=== PATIENT | female | born 1975 | race Caucasian/White ===

== ENCOUNTER 2018-11-29 11:05 | Observation (INO) | payer BC ==
--- NOTE | 2018-11-29 12:49 | RAD REPORT ---
EXAM DESCRIPTION: US - Transvaginal Study Probe - 11/29/2018 12:33 pm CLINICAL HISTORY: Vaginal bleeding, right-sided pelvic pain, known fibroids COMPARISON: CT imaging April 2013 TECHNIQUE: Endovaginal and limited transabdominal sonography performed. FINDINGS: Right ovary cannot be identified. Right ovary and right adnexa are obscured by an enlarged multi fibroid uterus and prominent bowel. Enlarged bulky lobulated uterus is present 9.6 x 12.3 x 10.3 cm. Multiple fibroids are identified. Ca lcifications of the uterus are seen as well. Body habitus somewhat limits assessment. Largest fibroid is approximately 7.9 cm in size. This generally matches the 2014 study. The multiple fibroids and ut erine calcifications obscure the endometrium. No assessment of the endometrial cavity can be made. A normal left ovary is not confirmed on this study. There is a 3.4 centimeter rounded hypoechoic mass present in the left adnexa. Echogenicity is not typical for ovarian tissue. Doppler evaluation does show blood flow within this mass. IMPRESSION: The patient has an enlarged bulky multi fibroid uterus not substantially different from a 2014 CT study. Body habitus and the large multi fibroid uterus fully obscures the endometrial cavity. No assessment can be made for endometrial thickening, mass or polyp. A 3.4 centimeter hypoechoic left adnexal mass is present not believed to be normal ovarian tissue. A solid mass of the left ovary is suspected. Right ovary and right adnexa obscured by the enlarged uterus and prominent right adnexal bowel.
[2018-11-29 13:00] LABS: Absolute Lymphocytes (CBC) 2.3 K/uL (0.7-4.9); Hematocrit 15.5 % (36.0-45.0); Lymphocytes % 37.3 % (15.3-44.8); MPV 9.5 fL (7.6-11.3); RBC Red Blood Cell Count 2.75 M/uL (3.86-4.86)
[2018-11-29 13:16] LABS: BUN Blood Urea Nitrogen 11 mg/dL (7-18); Bicarbonate 22 mmol/L (21-32); Glucose Level 92 mg/dL (74-106); Potassium 3.6 mmol/L (3.5-5.1); Sodium Level 140 mmol/L (136-145)
[2018-11-29] MEDS ORDERED: NA CHLORIDE 0.9% 500 ML ONE (13:56)
--- NOTE | 2018-11-29 14:53 | ER ---
Nurse's Notes [facility] Name: Lashanda Green Age: 43 yrs Sex: Female : 1975 Arrival Date: 11/29/2018 Time: 11:07 Bed 20 Private MD: Diagnosis: Abnormal uterine and vaginal bleeding, unspecified;Anemia, unspecified;Leiomyoma of uterus, unspecified Presentation: 11/29 11:10 Presenting complaint: Patient states: "I had blood work done yesterday at my doctor's aa5 office in [place] and they called today and said I needed a blood transfusion that my hemoglobin was a 6". Pt states "I've had my period for over a month but the doctor gave me some medicine and it has slowed down significantly". Pt c/o SOB and generalized weakness. 11:10 Transition of care: patient was not received from another setting of care. Onset of aa5 symptoms was November 29, 2018. Risk Assessment: Do you want to hurt yourself or someone else? Patient reports no desire to harm self or others. Care prior to arrival: None. 11:10 Acuity: JULISA 2 aa5 11:10 Method Of Arrival: Ambulatory aa5 11:39 Initial Sepsis Screen: Does the patient meet any 2 criteria? No. Patient's initial ph sepsis screen is negative. Does the patient have a suspected source of infection? No. Patient's initial sepsis screen is negative. Historical: - Allergies: 11:21 PENICILLINS; aa5 - PMHx: 11:21 None; aa5 - PSHx: 11:21 None; aa5 - Social history:: Smoking status: Patient/guardian denies using tobacco. - Ebola Screening: : No symptoms or risks identified at this time. Screenin:39 Abuse screen: Denies threats or abuse. Denies injuries from another. Nutritional ph screening: No deficits noted. Tuberculosis screening: No symptoms or risk factors identified. Fall Risk None identified. Assessment: 11:38 General: Appears in no apparent distress. uncomfortable, Behavior is cooperative, ph appropriate for age, anxious, crying, Denies fever. Pain: Denies pain. Neuro: Level of Consciousness is awake, alert, obeys commands, Oriented to person, place, time, situation. Cardiovascular: Reports fatigue, lightheadedness, Denies chest pain, nausea, shortness of breath, vomiting, Capillary refill < 3 seconds fingers. Respiratory: Airway is patent Respiratory effort is even, unlabored, Respiratory pattern is regular, symmetrical. : Reports vaginal bleeding that is with clots, heavy flow moderate flow, since Beginning of October. Derm: Skin is intact, Skin is pale. Musculoskeletal: Circulation, motion, and sensation intact. Range of motion: intact in all extremities. 12:15 Reassessment: Pt in US, will start IV upon return to ED. ph 13:00 Reassessment: Patient appears in no apparent distress at this time. Patient and/or ph family updated on plan of care and expected duration. Pain level reassessed. Patient is alert, oriented x 3, equal unlabored respirations, skin warm/dry/pink. 14:00 Reassessment: Patient appears in no apparent distress at this time. Patient and/or ph family updated on plan of care and expected duration. Pain level reassessed. Patient is alert, oriented x 3, equal unlabored respirations, skin warm/dry/pink. 15:00 Reassessment: Patient appears in no apparent distress at this time. Patient and/or ph family updated on plan of care and expected duration. Pain level reassessed. Patient is alert, oriented x 3, equal unlabored respirations, skin warm/dry/pink. 16:11 Reassessment: Patient appears in no apparent distress at this time. Patient and/or ph family updated on plan of care and expected duration. Pain level reassessed. Patient is alert, oriented x 3, equal unlabored respirations, skin warm/dry/pink. Pt eating chips, tolerating well, waiting to be taken to inpatient room, attempted to call report. 16:26 Reassessment: Patient appears in no apparent distress at this time. Report called to flaquito Dunn RN. 16:55 Reassessment: Patient appears in no apparent distress at this time. Patient and/or ph family updated on plan of care and expected duration. Pain level reassessed. Patient is alert, oriented x 3, equal unlabored respirations, skin warm/dry/pink. Dr Arias at bedside to speak w/ pt. 17:00 Reassessment: Patient appears in no apparent distress at this time. Patient and/or ph family updated on plan of care and expected duration. Pain level reassessed. Patient is alert, oriented x 3, equal unlabored respirations, skin warm/dry/pink. Blood transfusion complete, pt taken to room by sales technician. Vital Signs: 11:10 BP 138 / 81; Pulse 103; Resp 18 S; Temp 99.9(O); Pulse Ox 100% on R/A; Weight 113.4 kg aa5 (R); Height 5 ft. 5 in. (165.10 cm) (R); Pain 0/10; 12:30 BP 115 / 90; Pulse 96; Resp 16; Pulse Ox 100% on R/A; ph 13:30 BP 116 / 68; Pulse 94; Resp 18; Pulse Ox 100% on R/A; ph 14:49 BP 109 / 58 LA Supine; Pulse 97; Resp 25; Pulse Ox 97% on R/A; dh3 14:51 BP 119 / 64 LA Sitting; Pulse 98; Resp 19; Pulse Ox 100% on R/A; dh3 14:53 BP 117 / 73 LA Standing; Pulse 113; Resp 23; Pulse Ox 100% on R/A; dh3 15:30 BP 118 / 55; Pulse 95; Resp 20; Pulse Ox 100% on R/A; ph 16:27 BP 103 / 44; Pulse 91; Resp 16; Temp 98.0; Pulse Ox 100% on R/A; ph 11:10 Body Mass Index 41.60 (113.40 kg, 165.10 cm) aa5 ED Course: 11:07 Patient arrived in ED. as 11:10 Simi Denny FNP-C [facility]. kb 11:10 Jordy Moore MD is Attending Physician. kb 11:10 Arm band placed on Patient placed in an exam room, on a stretcher. aa5 11:20 Triage completed. aa5 11:38 Yessica Koo, RICKY is Primary Nurse. ph 11:40 Patient has correct armband on for positive identification. Call light in reach. Side ph rails up X2. security monitor on. Pulse ox on. NIBP on. Door closed. Noise minimized. Warm blanket given. Head of bed elevated. 12:38 US Transvaginal Study (Probe) In Process Unspecified. EDMS 12:45 Inserted saline lock: 22 gauge in left antecubital area, using aseptic technique. Blood ph collected. 13:05 Notified Nurse Practitioner and/or Physician Coil Binder of a critical lab result(s), aa5 Hemoglobin 4.4 and Hematocrit 15.5. 14:51 Harlan Smart MD is Hospitalizing Provider. kb 17:20 No provider procedures requiring assistance completed. ph 17:21 Patient admitted, IV remains in place. ph Administered Medications: 15:30 Drug: Ketorolac 15 mg Route: IVP; Site: left antecubital; ph 17:23 Follow up: Response: No adverse reaction; Pain is decreased ph 16:11 Drug: DepoProvera - medroxyPROGESTERone 150 mg Route: IM; Site: left deltoid; ph 17:24 Follow up: Response: No adverse reaction ph Medication: 15:35 Blood products: PRBCs X 1 unit given. ph Outcome: 14:52 Decision to Hospitalize by Provider. kb 17:21 Admitted to Tele accompanied by tech, via wheelchair, room 205, with chart, Report ph called to Mona GARCÍA 17:21 Condition: stable 17:21 Instructed on the need for admit. 17:24 Patient left the ED. ph Signatures: Dispatcher [employer] Simi Ambriz, LISA MCKEE-Lisbeth Meadows Audri, RN RN aa5 Yessica Koo RN RN [facility]
--- NOTE | 2018-11-29 14:54 | EDPHYS ---
Physician Documentation [facility] Name: Lashanda Green Age: 43 yrs Sex: Female : 1975 Arrival Date: 11/29/2018 Time: 11:07 Bed 20 Private MD: ED Physician Jordy Moore HPI: 11/29 11:16 This 43 yrs old Female presents to ER via Unassigned with complaints of kb Abnormal Lab Results. 11:16 The patient presents with vaginal bleeding that is heavy. Onset: The symptoms/episode kb began/occurred 1 month(s) ago. Modifying factors: The symptoms are alleviated by prescription medications, progesterone , the symptoms are aggravated by nothing. Associated signs and symptoms: Pertinent positives: cramping, vaginal bleeding, Pertinent negatives: constipation, diarrhea, dyspareunia, dysuria, fever, hematuria, nausea, urinary frequency, vaginal discharge, vomiting. Severity of symptoms: At their worst the symptoms were severe, in the emergency department the symptoms have improved, moderately. The patient has experienced similar episodes in the past. The patient has been recently seen by a physician: yesterday, with similar presenting complaints. Pt reports she has always had heavy menstrual cycles, but they have been getting worse lately. This time she has been bleeding for a month. Went to [facility] yesterday and was started on progesterone and had labs drawn. Called today and told her HGB was 6 so she needed to come get a transfusion. Pt reports fatigue and weakness as well. . Historical: - Allergies: 11:21 PENICILLINS; aa5 - PMHx: 11:21 None; aa5 - PSHx: 11:21 None; aa5 - Social history:: Smoking status: Patient/guardian denies using tobacco. - Ebola Screening: : No symptoms or risks identified at this time. ROS: 11:22 Positive for vaginal bleeding. kb 11:22 ENT: Negative for injury, pain, and discharge, Neck: Negative for injury, pain, and swelling, Cardiovascular: Negative for chest pain, palpitations, and edema, Respiratory: Negative for shortness of breath, cough, wheezing, and pleuritic chest pain, Abdomen/GI: Negative for abdominal pain, nausea, vomiting, diarrhea, and constipation, Back: Negative for injury and pain, MS/Extremity: Negative for injury and deformity, Skin: Negative for injury, rash, and discoloration, Neuro: Negative for headache, weakness, numbness, tingling, and seizure. 11:22 Constitutional: Positive for fatigue. Exam: 11:24 Constitutional: This is a well developed, well nourished patient who is awake, alert, kb and in no acute distress. Head/Face: Normocephalic, atraumatic. ENT: Nares patent. No nasal discharge, no septal abnormalities noted. Tympanic membranes are normal and external auditory canals are clear. Oropharynx with no redness, swelling, or masses, exudates, or evidence of obstruction, uvula midline. Mucous membranes moist. Neck: Trachea midline, no thyromegaly or masses palpated, and no cervical lymphadenopathy. Supple, full range of motion without nuchal rigidity, or vertebral point tenderness. No Meningismus. Chest/axilla: Normal chest wall appearance and motion. Nontender with no deformity. No lesions are appreciated. Cardiovascular: Regular rate and rhythm with a normal S1 and S2. No gallops, murmurs, or rubs. Normal PMI, no JVD. No pulse deficits. Respiratory: Lungs have equal breath sounds bilaterally, clear to auscultation and percussion. No rales, rhonchi or wheezes noted. No increased work of breathing, no retractions or nasal flaring. Abdomen/GI: Soft, non-tender, with normal bowel sounds. No distension or tympany. No guarding or rebound. No evidence of tenderness throughout. Skin: Warm, dry with normal turgor. Normal color with no rashes, no lesions, and no evidence of cellulitis. MS/ Extremity: Pulses equal, no cyanosis. Neurovascular intact. Full, normal range of motion. Neuro: Awake and alert, GCS 15, oriented to person, place, time, and situation. Cranial nerves II-XII grossly intact. Motor strength 5/5 in all extremities. Sensory grossly intact. Cerebellar exam normal. Normal gait. 11:24 Constitutional: The patient appears pale. 14:27 : Pelvic Exam: External exam: is normal, Speculum exam: moderate bleeding, blood kb clots in vaginal vault, bimanual exam reveals no cervical motion tenderness. Vital Signs: 11:10 BP 138 / 81; Pulse 103; Resp 18 S; Temp 99.9(O); Pulse Ox 100% on R/A; Weight 113.4 kg aa5 (R); Height 5 ft. 5 in. (165.10 cm) (R); Pain 0/10; 12:30 BP 115 / 90; Pulse 96; Resp 16; Pulse Ox 100% on R/A; ph 13:30 BP 116 / 68; Pulse 94; Resp 18; Pulse Ox 100% on R/A; ph 14:49 BP 109 / 58 LA Supine; Pulse 97; Resp 25; Pulse Ox 97% on R/A; dh3 14:51 BP 119 / 64 LA Sitting; Pulse 98; Resp 19; Pulse Ox 100% on R/A; dh3 14:53 BP 117 / 73 LA Standing; Pulse 113; Resp 23; Pulse Ox 100% on R/A; dh3 15:30 BP 118 / 55; Pulse 95; Resp 20; Pulse Ox 100% on R/A; ph 16:27 BP 103 / 44; Pulse 91; Resp 16; Temp 98.0; Pulse Ox 100% on R/A; ph 11:10 Body Mass Index 41.60 (113.40 kg, 165.10 cm) aa5 MDM: 11:11 Patient medically screened. kb 11:24 Data reviewed: vital signs, nurses notes. Data interpreted: Pulse oximetry: on room air kb is 100 %. Interpretation: normal. 14:28 Counseling: I had a detailed discussion with the patient and/or guardian regarding: the kb historical points, exam findings, and any diagnostic results supporting the discharge/admit diagnosis, lab results, radiology results, the need for further work-up and treatment in the hospital. 14:36 Physician consultation: Harlan Smart MD was called at 14:36, message left with kb staff. 14:44 Physician consultation: Harlan Smart MD was contacted at 14:44, regarding kb admission, to the medical/surgical unit. patient's condition, and will see patient in inpatient room. 11/29 11:16 Order name: CBC with Diff; Complete Time: 17:10 kb 11/29 11:16 Order name: Basic Metabolic Panel; Complete Time: 13:30 kb 11/29 11:16 Order name: Type And Screen kb 11/29 11:21 Order name: Iron Level; Complete Time: 13:30 kb 11/29 13:19 Order name: Bb Add On dh3 11/29 13:27 Order name: Packed RBC Leukored EDMS 11/29 11:16 Order name: IV Start; Complete Time: 13:47 kb 11/29 11:16 Order name: US Transvaginal Study (Probe); Complete Time: 13:05 kb 11/29 13:12 Order name: Pelvic Exam Setup; Complete Time: 13:47 kb 11/29 14:17 Order name: Urine Dipstick--Ancillary (enter results); Complete Time: 15:52 eb 11/29 14:29 Order name: ABO/RH no charge; Complete Time: 14:28 [facility] 11/29 17:09 Order name: CBC Smear Scan; Complete Time: 17:10 [facility] 11/29 14:38 Order name: Orthostatics; Complete Time: 14:57 kb Administered Medications: 15:30 Drug: Ketorolac 15 mg Route: IVP; Site: left antecubital; ph 17:23 Follow up: Response: No adverse reaction; Pain is decreased ph 16:11 Drug: DepoProvera - medroxyPROGESTERone 150 mg Route: IM; Site: left deltoid; ph 17:24 Follow up: Response: No adverse reaction ph Disposition: 11/29/18 14:52 Hospitalization ordered by Harlan Smart for Observation. Preliminary diagnosis are Abnormal uterine and vaginal bleeding, unspecified, Anemia, unspecified, Leiomyoma of uterus, unspecified. - Bed requested for Telemetry/MedSurg (observation). - Status is Observation. ph - Condition is Stable. - Problem is new. - Symptoms are unchanged. UTI on Admission? No Addendum: 12/04/2018 14:39 Co-signature as Attending Physician, Jordy Moore MD. g s Signatures: Dispatcher [employer] [facility] Simi Denny, HEAVY EQUIPMENT RENTAL MANAGER-C HEAVY EQUIPMENT RENTAL MANAGER-Ckb Siri Garcia RN RN dw Sharmaine Segovia, RN RN aa5 Yessica Koo RN RN ph Starr, Gregory, MD MD Corrections: (The following items were deleted from the chart) 11/29 15:04 14:52 Hospitalization Ordered by Harlan Smart MD for Observation. Preliminary dw diagnosis is Abnormal uterine and vaginal bleeding, unspecified; Anemia, unspecified; Leiomyoma of uterus, unspecified. Bed requested for Telemetry/MedSurg (observation). Status is Observation. Condition is Stable. Problem is new. Symptoms are unchanged. UTI on Admission? No. kb 15:09 15:04 11/29/2018 14:52 Hospitalization Ordered by Harlan Smart MD for Observation. dw Preliminary diagnosis is Abnormal uterine and vaginal bleeding, unspecified; Anemia, unspecified; Leiomyoma of uterus, unspecified. Bed requested for Telemetry/MedSurg (observation). Status is Observation. Condition is Stable. Problem is new. Symptoms are unchanged. UTI on Admission? No. dw 17:24 15:09 11/29/2018 14:52 Hospitalization Ordered by Harlan Smart MD for Observation. ph Preliminary diagnosis is Abnormal uterine and vaginal bleeding, unspecified; Anemia, unspecified; Leiomyoma of uterus, unspecified. Bed requested for Telemetry/MedSurg (observation). Status is Observation. Condition is Stable. Problem is new. Symptoms are unchanged. UTI on Admission? No. dw
[2018-11-29] MEDS ORDERED: KETOROLAC 30 MG/ML INJ ONE (15:21)
[2018-11-29 15:39] LABS: Urine Blood 3+ (NEG); Urine Glucose NEGATIVE (NEG); Urine Protein 2+ (NEG)
[2018-11-29] MEDS ORDERED: MEDROXYPROGEST ACET 150 MG/ML IM ONE (16:00)
[2018-11-29] MEDS ORDERED: METHOCARBAMOL 1,000 MG in NA CHLORIDE 0.9% 100 ML IV ONE (16:00)
[2018-11-29 17:08] LABS: Anisocytosis 3+; Blood Morphology Comment NOTED (NOT SEEN); Hypochromasia 3+; Platelet Estimate INCR; Poikilocytosis 2+; Urine White Blood Cell Casts OK
--- NOTE | 2018-11-29 17:10 | P.PN ---
Date of Service: 11/29/18 H&P dictated. 43y/o with multifibroid uterus with menometrorhagia. Will control with DepoProvera/OC's, transfuse 3 units prbc's and reevaluate in the morning her bleeding control.
[2018-11-29] MEDS ORDERED: NA CHLORIDE 0.9% 250 ML ONE (17:39)
[2018-11-29 17:49] VITALS: BMI 42.3
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
[2018-11-30] MEDS: Ringers Lactate 1,000 ML IV SCH ×2 (04:32→05:00)
[2018-11-30 04:44] LABS: Absolute Lymphocytes (CBC) 2.4 K/uL (0.7-4.9); Basophils % 1.6 % (0-1.3); Lymphocytes % 34.9 % (15.3-44.8); MPV 9.4 fL (7.6-11.3); RBC Red Blood Cell Count 3.14 M/uL (3.86-4.86)
[2018-11-30 04:48] LABS: Hematocrit 20.6 % (36.0-45.0)
[2018-11-30 04:54] LABS: BUN Blood Urea Nitrogen 12 mg/dL (7-18); Bicarbonate 22 mmol/L (21-32); Glucose Level 89 mg/dL (74-106); Potassium 3.8 mmol/L (3.5-5.1); Sodium Level 142 mmol/L (136-145)
[2018-11-30] MEDS ORDERED: NA CHLORIDE 0.9% 250 ML ONE (08:58)
[2018-11-30] MEDS ORDERED: NORGESTREL ETHINYL ESTRADIOL PO SCH (09:00)
[2018-11-30] MEDS: IBUPROFEN 400 MG TAB PO PRN ×2 (11:48→20:37)
[2018-11-30] MEDS ORDERED: NORGESTREL ETHINYL ESTRADIOL PO ONE (20:00)
[2018-11-30 21:41] VITALS: O2SAT 100
[2018-12-01] MEDS: Ringers Lactate 1,000 ML IV SCH (00:15)
[2018-12-01 04:18] VITALS: TEMP 98.2
[2018-12-01 07:29] LABS: Hematocrit 21.9 % (36.0-45.0)
[2018-12-01 08:59] VITALS: BP 127/73
[2018-12-01] MEDS ORDERED: NORGESTREL ETHINYL ESTRADIOL PO SCH (09:00)
--- NOTE | 2018-12-02 06:30 | DS ---
Date of Discharge: 12/01/2018 Final Hospital Discharge Diagnoses: 1.Severe blood loss anemia and secondary menometrorrhagia. 2.Multifibroid uterus. Complications: None. Procedures: None. Hospital Course: The patient is a 43-year-old female, nulligravid, admitted with s evere anemia secondary to menometrorrhagia. Her admission hemoglobin and hematocrit were 4.4 and 15. 5. She received 4 units of blood. Packed red blood cells were dismissed with hemoglobin and hematoc rit pending, but most recent was 6.8 and 23.0. She was dismissed, having received an injection of De po-Provera 150 mg and being started on Ovral contraceptive. She will be seen back in my office in 2 weeks for repeat CBC, endometrial biopsy, and probably will be referred to a mail sorting supervisor for hystere ctomy via minimally invasive approach. She is O-positive blood type. YANNA/BERTIN Voice ID: [id number] Report ID: [id number]
== END 2018-12-01 09:10 | disposition home or self-care (01) ==
LOC: ER 11:05 → ERHOLD 14:57 → 2ND 16:26
PROVIDERS: ADMIT Specialist; ATTEND Specialist
DX: D50.0 Iron deficiency anemia secondary to blood loss (chronic) (principal); N92.1 Excessive and frequent menstruation with irregular cycle; D25.9 Leiomyoma of uterus, unspecified
CPT/HCPCS: 85025 ×2; 80048 ×2; 36415 ×2; 86900; 86850; 86901; 85018 ×2; 85014 ×2; 81003; 82728; 76830; 36430; 96372; 96374; 99285; J1050; P9016 ×4; G0378 ×4; J2800

== ENCOUNTER 2019-01-29 08:55 | Inpatient (IN) | payer BC ==
[2019-01-25 12:04] LABS: Urine Appearance CLOUDY; Urine Blood 2+ (NEG); Urine Color YELLOW; Urine Glucose NEGATIVE (NEG); Urine Protein NEGATIVE (NEG); Urine Urobilinogen 0.2 mg/dL (0.2-1.0); Urine pH 5.5 (5.0-7.0)
[2019-01-25 12:08] LABS: Absolute Lymphocytes (CBC) 1.8 K/uL (0.7-4.9); Basophils % 1.1 % (0-1.3); Hematocrit 37.3 % (36.0-45.0); Lymphocytes % 24.7 % (15.3-44.8); MPV 10.5 fL (7.6-11.3); RBC Red Blood Cell Count 4.54 M/uL (3.86-4.86)
[2019-01-25 12:21] LABS: Urine Bilirubin NEGATIVE (NEG); Urine Microscopic Reflex ORDER UMIC
[2019-01-25 12:36] LABS: Urine Bacteria 20-50 /HPF (<20)
[2019-01-25 12:38] LABS: Urine Culture Reflex Order NOT NEEDED; Urine Mucus 1+ /HPF (NONE SEEN)
[2019-01-25 13:07] LABS: Blood Morphology Comment NOT SEEN (NOT SEEN); Platelet Estimate ADEQ
[2019-01-29] MEDS ORDERED: Ringers Lactate 1,000 ML IV ONE ×2 (09:18→14:21)
[2019-01-29] MEDS ORDERED: CEFAZOLIN/SWI 2gm 2 GM/20 ML SYR ONE (09:18)
[2019-01-29] MEDS ORDERED: CEFAZOLIN/SWI 1gm 1 GM/10 ML SYR ONE (09:19)
[2019-01-29] MEDS ORDERED: SCOPOLAMINE HYDROBROMIDE PATCH TD ONE ×2 (09:33)
[2019-01-29] MEDS ORDERED: MIDAZOLAM HCL 2 MG/2 ML INJ ONE ×2 (10:03→10:12)
[2019-01-29] MEDS ORDERED: PROPOFOL 200 MG/20 ML VIAL IV ONE (10:09)
[2019-01-29] MEDS ORDERED: ROCURONIUM 50 MG/5 ML VIAL IV ONE ×3 (10:10→12:35)
[2019-01-29] MEDS ORDERED: LIDOCAINE 2% MPF 5 ML VIAL ONE (10:10)
[2019-01-29] MEDS ORDERED: FENTANYL CITR 250 MCG/5 ML ONE (10:11)
[2019-01-29] MEDS ORDERED: ONDANSETRON 4 MG/2 ML VIAL ONE (10:13)
[2019-01-29] MEDS ORDERED: GLYCOPYRROLATE 0.2 MG/ML SYR ONE (10:13)
[2019-01-29] MEDS ORDERED: NEOSTIGMINE 1 MG/ML -5 ML ONE (10:13)
[2019-01-29] MEDS ORDERED: dexAMETHasone 10 MG/ML VIAL ONE (10:14)
[2019-01-29] MEDS: NA CHLORIDE 0.9% 1,000 ML ONE ×2 (11:10→12:05)
[2019-01-29] MEDS: BUPIVACA 0.5%/EPI 0.0005%/PF 30 ML VIAL ONE ×2 (11:20→12:10)
[2019-01-29] MEDS: Ringers Lactate 1,000 ML IV ONE ×2 (11:33→12:08)
[2019-01-29] MEDS ORDERED: NA CHLORIDE 0.9% 100 ML IV ONE (11:48)
[2019-01-29] MEDS ORDERED: VASOPRESSIN 20 UNIT/ML VIAL ONE (11:49)
[2019-01-29] MEDS ORDERED: HYDROMORPHONE HCL 2 MG/ML inj ONE ×2 (12:38→13:47)
[2019-01-29] MEDS ORDERED: NA CHLORIDE 0.9% 1,000 ML ONE (13:37)
[2019-01-29] MEDS ORDERED: CEFAZOLIN SODIUM 1 GM/VIAL ONE (13:49)
[2019-01-29] MEDS ORDERED: ACETAMINOPHEN 500 MG TAB PO PRN (14:39)
[2019-01-29] MEDS ORDERED: ONDANSETRON 4 MG (ODT) TAB PO PRN (14:39)
[2019-01-29] MEDS ORDERED: IBUPROFEN 600 MG TAB PO PRN (14:39)
[2019-01-29] MEDS ORDERED: PROMETHAZINE 25 MG/ML VIAL IV PRN (14:39)
[2019-01-29] MEDS ORDERED: NALOXONE 0.4 MG/ML VIAL IV PRN (14:42)
[2019-01-29] MEDS ORDERED: MORPHINE/NS PCA 50 MG/50 ML PCA.SYRING IV PRN (14:42)
[2019-01-29] MEDS ORDERED: HEPARIN 5000 UNIT/ML 1 ML VIAL SQ SCH (17:00)
[2019-01-29 17:11] VITALS: O2SAT 94; BMI 41.9
[2019-01-29] MEDS: Ringers Lactate 1,000 ML IV SCH (20:00)
[2019-01-30] MEDS: Ringers Lactate 1,000 ML IV SCH ×2 (04:11→12:08)
[2019-01-30] MEDS: HEPARIN 5000 UNIT/ML 1 ML VIAL SQ SCH ×2 (07:59→17:00)
[2019-01-30] MEDS ORDERED: DOCUSATE NA 100 MG CAP PO PRN (12:46)
[2019-01-30] MEDS: HYDROCODONE/APAP 5/325 MG TAB PO PRN (14:38)
[2019-01-30] MEDS: DOCUSATE NA 100 MG CAP PO SCH (20:50)
[2019-01-31] MEDS ORDERED: Ringers Lactate 1,000 ML IV ONE (00:55)
[2019-01-31] MEDS: HEPARIN 5000 UNIT/ML 1 ML VIAL SQ SCH ×3 (01:00→17:00)
[2019-01-31] MEDS: HYDROCODONE/APAP 5/325 MG TAB PO PRN ×3 (01:11→17:15)
[2019-01-31 04:28] LABS: Absolute Lymphocytes (CBC) 1.6 K/uL (0.7-4.9); Basophils % 0.5 % (0-1.3); Hematocrit 32.7 % (36.0-45.0); Lymphocytes % 16.9 % (15.3-44.8); MPV 10.2 fL (7.6-11.3)
[2019-01-31 04:43] LABS: BUN Blood Urea Nitrogen 6 mg/dL (7-18); Bicarbonate 26 mmol/L (21-32); Glucose Level 94 mg/dL (74-106); Potassium 3.6 mmol/L (3.5-5.1); Sodium Level 141 mmol/L (136-145)
[2019-01-31] MEDS: DOCUSATE NA 100 MG CAP PO SCH ×2 (08:59→20:59)
[2019-01-31] MEDS: IBUPROFEN 600 MG TAB PO SCH (18:03)
[2019-02-01] MEDS: IBUPROFEN 600 MG TAB PO SCH ×3 (00:57→12:13)
[2019-02-01] MEDS: HEPARIN 5000 UNIT/ML 1 ML VIAL SQ SCH ×2 (01:01→08:47)
[2019-02-01] MEDS: HYDROCODONE/APAP 5/325 MG TAB PO PRN ×2 (04:20→10:20)
[2019-02-01] MEDS: DOCUSATE NA 100 MG CAP PO SCH (08:46)
[2019-02-01 12:19] VITALS: BP 136/72; TEMP 98.6
--- NOTE | 2019-03-03 02:55 | OP ---
Date of Procedure: 01/29/2019 Surgeon: Monserrat Killian MD Machinist Instructor: Harlan Smart MD Preoperative Diagnoses: Menorrhagia, pelvic pain (AUB-L). Postoperative Diagnoses: Menorrhagia, pelvic pain (AUB-L). Procedures Performed: Laparotomy, myomectomy x2, followed by total abdominal hysterectomy, bilateral salpingectomy, cystoscopy, right ureteric stent placement and removal. Anesthesia: General endotracheal. Estimated Blood Loss: 500. Urine Output: 350. Specimens: Uterus, bilateral tubes and ovaries and cervix and fibroids all x2. Cervix and 2 fibroid s were 2 different specimens besides the tubes and the corpus of the uterus. Indications: The patient is a 43-year-old with large fibroids, notable pelvic pain and discomfort, u rinary frequency and does have a history of menorrhagia. However, this was not her biggest complaint . On examination, she had large fibroids about 20-week size. She had endometrial sampling without a typia or malignancy. No evidence of any LMS. She was counseled on the options of doing laparotomy, myomectomy alone or myomectomy with hysterectomy and salpingectomy. Laparoscopy was going to be diff icult due to the size of this uterus and this was discussed with the patient. Description Of Procedure: After informing her about the risks of the procedure including bleeding, i nfection, injury to the bowel, bladder, and ureters, possibility of cystoscopy and stenting of the ur eter, she was consented and taken back to OR. 2 g of Ancef were given. She was placed in a supine f ashion on the operating table. General anesthesia was given. She was placed in a dorsal lithotomy p osition. Abdomen, vulva, vagina, and perineum were prepped and draped in a sterile fashion. Nina w as placed to drain the bladder and attached to a Nina drainage bag and this area was draped. A midl ine vertical incision was made with the help of a scalpel to at least 2 cm above the level of the umb ilicus, curving around the right side to join the supraumbilical part of the incision. Subcutaneous tissue was taken down with the help of the Bovie. The fascia was taken down with the help of the Bov ie as well. The peritoneum opened up with hemostats and sharp dissection and with the Bovie. Once t he entire specimen was well exposed, the fibroids were visualized and there was large fundal and anot her anterior right lateral fibroid, this was the largest. Dilute vasopressin was taken and injected at the base of the fibroids. Then, a Bovie was used to perform a myomectomy by taking down the seros a, small amount of myometrium, and getting to the base of the fibroid. The base of the fibroid was t aken down with the help of the Bovie and then the base stitched with 0 Vicryl suture to prevent bleed ing. Similar dissection was performed on the right side to remove the fibroid and once this was done , I saw the need for placement of right ureteric stent for identification of the ureter or an injury if it did occur post hysterectomy. The uterus was much more deviated to the right side and impinging on the right lateral wall displacing the ureter medially and posteriorly from the pelvic sidewall. Gloves were changed. Cystoscopy with 17-B[place] sheath 30-degree lens, and a Glidewire was taken afte r removing the Nina. After placing the camera in the bladder, the right ureter was intubated with a Glidewire. Then, once the cystoscope was removed, the 5-[place] stent was placed over the Glidewire about 25 cm and then the Glidewire was pulled out. Nina was replaced, a 3-way and a Jacky tree attachment was taken and the stent placed through this and Nina attached to this, then this attached to a drainage bag and tied together to retain them in place. Once the bottom was draped, went back abdominally, went down to open the anterior peritoneum, raised the bladder flap all the way to the opposite side, then taken down the broad ligament with the help o f the hand-held LigaSure. Posteriorly peritoneum taken down to the uterosacral as far as this was vi sible. On opposite side, similar dissection was performed taking down the round ligament, then tying this down with a 0 Vicryl and holding this on the hemostats. The same thing was done on the opposit e side as well for retraction, then the utero-ovarian ligament, mesosalpinx tube were all taken down. The ovaries appeared to be unremarkable. Once taking the posterior peritoneum on the left side, th e broad ligament was taken down. The vessels were skeletonized on both sides. Then, the vessels wer e taken with the help of the curved Melany stitch tied x2 on each side. Then, a supracervical hyster ectomy was performed by taking the Bovie and removing the top of the uterus, which is the corpus incl uding the rest of the fibroids it from the cervix at the level of the internal os. Once t he specimen was removed, it was much more visual and we were able to visualize the cervix. The bladd er was dissected further down to expose the anterior vaginal wall as well as laterally towards the bl adder pillar, dissection was performed. Then, straight Michelle clamps were taken down to take down th e cardinals and the paravaginal attachment and the vaginal attachments to the cervix the rest of the way and these were all stitch tied with 0 Vicryl sutures and curved Heaneys were placed at the end ri ght below the cervix on the anterior vaginal wall. Then the specimen was cut with Eric scissors . Two angle stitches, Heaneys were placed and 2 [id number] were placed in the middle including the posterior peritoneum, there was decent hemostasis. Thorough irrigation and suction were perform ed. The ureter was well identified on both sides. No evidence of any injury to the ureters. The tu bes were then taken down with the help of the LigaSure and handed out after the completion of the hys terectomy. Thorough irrigation and suction were performed. The areas of bleeding were sutured with 3-0 Vicryl suture and once the procedure was completed, the peritoneum was closed with the help of a 3-0 Vicryl in a continuous running fashion. The rectus sheath brought together with a 0 Vicryl simpl e stitch and fascia closed with the help of 0 PDS in a continuous running fashion. Thorough irrigati on of the subcutaneous tissues was done, closed with interrupted 3-0 chromic and then arielle. The s tent was removed. Cystoscopy was performed. Strong jets of urine from both sides were seen. The Fo bob was replaced. Instrument, needle, and sponge counts were correct at the end of the case. The liz dejesus was recovered from anesthesia and taken to PACU in stable condition. Her EBL was 500 and her u rine output was clear and 350. She was to be admitted to the hospital for recovery and discharge in 2-3 days. CAROLA Voice ID: [id number] Report ID: [id number]
== END 2019-02-01 14:30 | disposition home or self-care (01) | DRG 743 ==
LOC: OR 08:55 → 2ND-WC 14:40
PROVIDERS: ADMIT Obstetrics & Gynecology; ATTEND Obstetrics & Gynecology
PROC: 0UT70ZZ Resection of Bilateral Fallopian Tubes, Open Approach (ICD-10-PCS; 2019-01-29)
PROC: 0T768DZ Dilation of Right Ureter with Intraluminal Device, Via Natural or Artificial Opening Endoscopic (ICD-10-PCS; 2019-01-29)
PROC: 0UT90ZZ Resection of Uterus, Open Approach (ICD-10-PCS; principal; 2019-01-29 10:30)
DX: N92.0 Excessive and frequent menstruation with regular cycle (principal); D25.9 Leiomyoma of uterus, unspecified
CPT/HCPCS: 36415; 80048; 81003; 81015; 81025; 85025; 86850; 86900; 86901; 88307; J0690; J1100; J1170; J1644; J2250; J2270; J2405; J2704; J2710; J3010; J7030; J7120